=== PATIENT | male | born 1945 | race Caucasian/White ===

== ENCOUNTER 2021-02-05 08:39 | Outpatient (CLI) | payer OTHER | END 2021-02-05 08:41 | disposition home or self-care (01) | LOC: NUCLEAR 08:39 | PROVIDERS: ATTEND Internal Medicine Cardiovascular Disease | DX: I20.9 Angina pectoris, unspecified (principal); I25.10 Atherosclerotic heart disease of native coronary artery without angina pectoris; I11.9 Hypertensive heart disease without heart failure; E78.2 Mixed hyperlipidemia | CPT/HCPCS: 78452; 93017; A9500 ==